=== PATIENT | female | born 1965 | race Caucasian/White ===

== ENCOUNTER → 2017-01-14 | Day surgery (SDC) | payer BC ==
--- NOTE | 2017-01-18 14:18 | PATH ---
Surgical Pathology Report Patient Name: CHASE MOTA [facility] Rec. #: [id number] /Age/Gender: 1965 (Age: 51) / F Account: [id number] Location: [facility] Taken: 01/14/2017 Received: 01/14/2017 Reported: 01/18/2017 Physicians: Rommel Daniels M.D. Specimen(s) Received A: RIGHT BREAST SPECIMEN WITH CALCIFICATIONS B: RIGHT BREAST SPECIMEN WITHOUT CALCIFICATIONS Clinical History Nonpalpable lesion Mammographic findings: microcalcification, suspicious Final Diagnosis A. BREAST, RIGHT, WITH CALCIFICATIONS, STEREOTACTIC BIOPSY: DUCTAL CARCINOMA IN SITU (DCIS), SOLID AND CRIBRIFORM TYPE, LOW NUCLEAR GRADE WITH ASSOCIATED CALCIFICATIONS, INVOLVING FIBROADENOMA. (SEE NOTE) Note: Immunohistochemical studies performed at [facility] [place], [place] ([id number]) show the following results: the lesional cells are strongly positive for CK7 and predominantly negative for CK5/6. The intraductal proliferation is predominantly devoid of myoepithelial cells within the lesion, highlighted by p40 immunostain. E-Cadherin immunostain (performed at [facility]) shows membranous positivity in the lesional cells, which supports ductal phenotype. These findings support the diagnosis. Case reviewed intradepartmentally with consensus on diagnosis. Results of ER and AK studies performed on block A at [facility] [place], [place] ([id number]) are as follows: ER (clone [id number] mouse monoclonal antibody by [employer]): ~20 % nuclear staining with moderate to strong intensity (Positive). AK (clone16 mouse monoclonal antibody by Leica): 0 % nuclear staining (Negative). Positive and negative controls (internal if applicable) show appropriate results. Formalin fixation and cold ischemic times are within current ASCO/CAP recommendations for ER, AK and Her2 testing. B. BREAST, RIGHT, WITHOUT CALCIFICATIONS, STEREOTACTIC BIOPSY: BENIGN BREAST TISSUE. Electronically Signed Lyndsay Liu M.D. Gross Description A. Received in formalin labeled "right breast with calcifications," is a 1.7 x 1.6 x 0.2 cm aggregate of gates, irregular to cylindrical portions of fibroadipose tissue. The formalin is filtered and the specimen is entirely submitted in one cassette. B. Received in formalin labeled "right breast without calcifications," is a 2.0 x 1.5 x 0.3 cm aggregate of multiple gates-yellow, irregular to cylindrical portions of fibroadipose tissue. The formalin is filtered and the specimen is entirely submitted in one cassette. Time to formalin fixation: 5 minutes Total formalin fixation time: Approximately 6 hours. 01/14/201701/14/2017
== END | disposition home or self-care (01) ==
LOC: FMAMMOTONE 10:53
PROVIDERS: ATTEND Surgery Surgical Oncology
PROC: 0HBT3ZX Excision of Right Breast, Percutaneous Approach, Diagnostic (ICD-10-PCS; principal; 2017-01-14)
DX: D05.11 Intraductal carcinoma in situ of right breast (principal); R92.1 Mammographic calcification found on diagnostic imaging of breast; D24.1 Benign neoplasm of right breast
CPT/HCPCS: 19081; 88305-TC; 88342-TC